=== PATIENT | female | born 1985 | race Caucasian/White ===

== ENCOUNTER 2016-08-16 14:05 | Emergency (ER) | payer OTHER ==
--- NOTE | 2016-08-16 15:57 | US ---
PELVIC COMPLETE, TRANSVAGINAL ECHOGRAPHY COMPARISON: None. HISTORY: 30 years old. Vaginal bleeding. Hysterectomy and oophorectomies for treatment of endometriosis. On hormone replacement therapy. Technique: Transabdominal and transvaginal. FINDINGS: Uterus: Hysterectomy. Right ovary: Removed Left ovary: Removed Adnexa mass: None Fluid: None. Vaginal cuff: Mildly hypervascular. Possible inflammatory or neoplastic process. IMPRESSION: 1. Hypervascular vaginal cuff. Possible inflammatory or neoplastic process. Sent to the emergency department electronic medical record system, 08/16/2014 at 15:58
[2016-08-16] MEDS ORDERED: KETOROLAC TROMETHAMINE 60 MG/2 ML VIAL ONE (16:16)
[2016-08-16] MEDS ORDERED: PREDNISONE 20 MG TABLET ONE (16:16)
== END 2016-08-16 16:43 | disposition home or self-care (01) ==
LOC: ED 14:05
DX: N93.8 Other specified abnormal uterine and vaginal bleeding (principal); I86.8 Varicose veins of other specified sites
CPT/HCPCS: 76856; 76830; 99284; 96372; 99283; J7512; J1885